=== PATIENT | male | born 1960 | race Caucasian/White ===

== ENCOUNTER 2021-01-21 09:07 | Day surgery (SDC) | payer OTHER, SELFPAY ==
[2021-01-18 11:24] VITALS: BMI 25.4
--- NOTE | 2021-01-19 15:02 | HO.ANESPROP2 ---
Documented by User: Mala Lara 01/19/21 15:03 HPI - Anesthesia Eval Consult details Narrative: 60yo M for Upper Endoscopy and Colonoscopy [facility] Past Medical History Medical History (Updated 01/21/21 @ 10:03 by Hilary Padilla) GERD (gastroesophageal reflux disease) Hiatal hernia Hypoglycemia Surgical History Surgical History H/O colonoscopy Social History Social History Patient Tobacco Use Status: Former Tobacco user Use of substances other than those prescribed or required for medical reasons: No Are you DNR?: No Advance Directives Information Provided: No Meds Allergies Allergy/AdvReac Type Severity Reaction Status Date / Time environmental Allergy Mild Fatigued Uncoded 01/21/21 09:31 Home Medications Medication Instructions Recorded Confirmed Last Taken Type ferrous sulfate 325 mg PO DAILY 01/18/21 01/18/21 Unknown History ibuprofen 400 mg PO Q6H PRN 01/18/21 01/18/21 Unknown History Exam Exam Date and Time: January 19, 2021 1502 Height,Weight and Vital Signs: Height 6 ft Weight 85.275 kg Assessment and Plan Assessment Anesthesia Assessment: Chart Reviewed Documented by User: Hilary Padilla 01/21/21 10:04 [facility] Past Medical History Medical History (Updated 01/21/21 @ 10:03 by Hilary Padilla) GERD (gastroesophageal reflux disease) Hiatal hernia Hypoglycemia Family History Family history of problems with anesthesia: No Surgical History Surgical History H/O colonoscopy History of Problems with Anesthesia: No Social History Social History Patient Tobacco Use Status: Former Tobacco user Use of substances other than those prescribed or required for medical reasons: No Are you DNR?: No Advance Directives Information Provided: No Meds Allergies Allergy/AdvReac Type Severity Reaction Status Date / Time environmental Allergy Mild Fatigued Uncoded 01/21/21 09:31 Home Medications Medication Instructions Recorded Confirmed Last Taken Type ferrous sulfate 325 mg PO DAILY 01/18/21 01/18/21 Unknown History ibuprofen 400 mg PO Q6H PRN 01/18/21 01/18/21 Unknown History Exam Height,Weight and Vital Signs: Vital Signs Temp Pulse Resp BP Pulse Ox 01/21/21 09:41 97.7 F 86 18 138/89 98 Airway Mallampati Class: II TM Dist: >3cm Neck ROM: Full Heart: RRR Lungs: CTAB Assessment and Plan Assessment Anesthesia Assessment: Anesthesia Plan Discussed and Chart Reviewed Final Anesthetic Review NPO: Yes ASA Class: II Final Preanesthetic Review: No Changes in Pt Med Stat, Meds/Allgs Chart Reviewed, Consent Obtained/Reviewed and Anes Risks/Benef Reviewed Patient Risk: Low Procedure Risk: Low Assessment/Block/Sedation in SS: Assess/Block/Sedation-SS Anesthetic Plan Anesthetic Plan: MAC: Disposition: Standard PACU
[2021-01-21 09:41] VITALS: BP 138/89; PULSE 86; RESP 18; TEMP 36.5; O2SAT 98
[2021-01-21] MEDS: Lactated Ringers 1,000 ML 100 ML IVCONT (09:44)
--- NOTE | 2021-01-21 10:01 | MHC.SHP ---
Pre-Procedural Eval Section B Chief Complaint: reflux,screening Details of Present Illness: see H&P no changes Relevant Family History (Specify if Yes): No Relevant Social History: None Present Medications: see Short Stay Collaborative assessment Medical History: No relevant PMH History of Previous Operations: No relevant previous surgery Allergies: Allergies Allergy/AdvReac Type Severity Reaction Status Date / Time environmental Allergy Mild Fatigued Uncoded 01/21/21 09:31 Review of Systems Sugical H&P ROS: Negative: Constitution, Cardiovascular, Respiratory, Neurological, Psychiatric, Hem-Onc, Allergic/Immunologic, Gastrointestinal, Genitourinary, Musculoskeletal, Integumentary, Endocrine and Eyes/Ears/Nose/Throat Exam Surgical H&P Exam: Normal: HEENT, Normal: Heart, Normal: Lungs, Normal: Extremities, Normal: Abdomen, Normal: Skin and Normal: Neurological Plan Diagnosis/Plan: Unchanged I have reviewed the history and physical and performed a pertinent physical examination on my patient. No changes have occurred unless specified.
--- NOTE | 2021-01-21 10:41 | P.BOP_ITS ---
Brief Operative Note Date of Service: 01/21/21 Pre-op diagnosis: gerd,screening Post-op diagnosis: same Procedure: egd, colon Surgeon: Ezequiel Fisher Anesthesia: MAC Was an Residential Door Unit Installer used for this Procedure?: No Estimated blood loss (mL): 5 Pathology: other (bxs antrum, polyps, egj sigmoid polyp) Condition: stable Disposition: PACU
[2021-01-21 10:43] VITALS: BP 94/61; PULSE 85; RESP 14; TEMP 36.2; O2SAT 97
[2021-01-21 10:57] VITALS: BP 105/69; PULSE 74; RESP 18; O2SAT 98
--- NOTE | 2021-01-21 11:01 | OP_ITS ---
SURGEON: Ezequiel Fisher MD INDICATIONS: 1. Gastroesophageal reflux disease. 2. Colon cancer screening. PREOPERATIVE DIAGNOSIS: POSTOPERATIVE DIAGNOSIS: PROCEDURE PERFORMED: 1. Upper endoscopy with biopsy. 2. Colonoscopy to the terminal ileum with snare polypectomy. ESTIMATED BLOOD LOSS: COMPLICATIONS: ANESTHESIA: ASSISTANTS: SPECIMENS: MEDICATIONS: Monitored anesthesia care. DESCRIPTION OF PROCEDURE: History and physical performed. The risks and benefits of the procedure were explained to the patient. Informed consent was obtained. The patient was placed in the left lateral decubitus position. A digital rectal exam was performed prior to the colonoscopy. First, the Olympus video gastroscope was introduced into the esophagus, stomach, and duodenum. Examination was performed and the scope was removed. He was repositioned for colonoscopy. The Olympus pediatric video colonoscope was introduced into the rectum and advanced to the cecum without difficulty. The cecum was identified by transillumination, palpation, and identification of ileocecal valve. Examination was performed and the scope was removed. He tolerated both procedures well, returned to recovery area in stable condition. FINDINGS: UPPER ENDOSCOPY: Esophagus: The esophagus was normal. There was no esophagitis. Stomach: The stomach showed no evidence of masses or ulcers. There were multiple benign-appearing gastric polyps in the body and fundus measuring less than 5 mm. Duodenum: The bulb and second portion were normal. Biopsies were obtained from the antrum, two of the gastric polyps and EG junction. COLONOSCOPY: The terminal ileum was normal. The visualized colonic mucosa was normal. At 30 cm from the anal verge, was a 10 mm polyp, which was removed with a snare and recovered via suction. No other polyps were identified. There was sigmoid diverticulosis. Retroflexed examination showed moderately large internal hemorrhoids. The quality of the prep was good. IMPRESSION: 1. Gastroesophageal reflux disease. 2. Gastric polyps. 3. Colon polyp. RECOMMENDATION: Follow up the biopsy results. MD DANA Luna/JUANJOSEL / [id number]
== END 2021-01-21 11:21 | disposition home or self-care (01) ==
LOC: HO.SSS 09:07
PROVIDERS: PCP Internal Medicine; Visit Provider Internal Medicine Gastroenterology
PROC: (CPT 45385; principal; 2021-01-21 10:20)
DX: Z12.11 Encounter for screening for malignant neoplasm of colon (principal); D12.5 Benign neoplasm of sigmoid colon; K57.30 Diverticulosis of large intestine without perforation or abscess without bleeding; K64.8 Other hemorrhoids; K21.9 Gastro-esophageal reflux disease without esophagitis; K31.7 Polyp of stomach and duodenum; Z79.1 Long term (current) use of non-steroidal anti-inflammatories (NSAID); Z87.891 Personal history of nicotine dependence
CPT/HCPCS: 45385; 43239; 88305; 88342